=== PATIENT | female | born 1960 | race Caucasian/White ===

== ENCOUNTER 2018-09-14 23:49 | Emergency (ER) | payer SELFPAY ==
[~2018-09-14] VITALS: Ht 162.6 cm; Wt 54.1 kg
[2018-09-14 23:54] VITALS: BP 178/79; PULSE 77; RESP 19; Ht 162.6 cm; Wt 54.1 kg
== END 2018-09-15 03:34 | disposition left against medical advice (07) ==
LOC: FTE 23:49
DX: Z53.21 Procedure and treatment not carried out due to patient leaving prior to being seen by health care provider (principal)